=== PATIENT | female | born 1990 | race African-American/Black ===

== ENCOUNTER 2018-04-15 12:22 | Emergency (ER) | payer BC, SELFPAY ==
[2018-04-15 13:43] LABS: Hemoglobin 11.3 g/dL (12.0-16.0); Mean Corpuscular HGB CONC 30.4 g/dL (32.0-36.0); Mean Corpuscular Hemoglobin 22.8 pg (27.0-31.0); Mean Platelet Volume 8.9 fL (7.4-10.4); Platelet Count 227 thou/uL (130-400); RBC Distribution Width 13.7 % (11.5-14.5); Red Blood Cell (RBC) Count 4.94 mill/uL (4.20-5.40); White Blood Cell (WBC) Count 5.9 thou/uL (4.8-10.8)
--- NOTE | 2018-04-15 14:05 | RAD ---
AP VIEW CHEST: Date: 04/15/18 HISTORY: Chest pain. Elevated blood pressure. FINDINGS: AP view of chest obtained. Cardiomegaly noted. No evidence of effusions, pneumonia, or pneumothorax s een. IMPRESSION: Cardiomegaly. POS: JANIS
[2018-04-15 14:08] LABS: #Basophils 0.1 thou/uL (0.0-0.2); #Eosinphils 0.1 thou/uL (0.0-0.7); #Lymphocytes 2.3 thou/uL (1.20-3.40); #Monocytes 0.5 thou/uL (0.11-0.59); %Basophils 1.5 % (0.0-1.0); %Eosinophils 1.8 % (0.0-10.0); %Lymphocytes 38.6 % (21.0-51.0); %Monocytes 7.7 % (0.0-10.0); %Neutrophils 50.3 % (42.0-75.0); Hypochromia SLIGHT = 6-15 cells (100X) (0-5/hpf); MDiff Complete? YES; Microcytosis SLIGHT = 6-15 cells (100X) (0-5/hpf); PLT Morphology Comment Appears Adequate
[2018-04-15 14:09] LABS: CKMB 0.7 ng/mL (0-6.6); Troponin I Less than 0.010 ng/mL (< 0.028)
[2018-04-15 14:12] LABS: ALT (SGPT) 8 U/L (8-55); AST (SGOT) 11 U/L (5-34); Albumin 4.1 g/dL (3.5-5.0); Alkaline Phosphatase 73 U/L (40-150); Anion Gap 9 mmol/L (10-20); BUN (Urea Nitrogen) 13 mg/dL (7.0-18.7); Bilirubin, Total 0.8 mg/dL (0.2-1.2); CK (CPK) 100 U/L (29-168); Calc. Creatinine Clearance 0 mL/min (70-130); Calcium 9.4 mg/dL (7.8-10.44); Carbon Dioxide 28 mmol/L (22-29); Chloride 105 mmol/L (98-107); Estimated GFR-MDRD 81; Glucose 119 mg/dL (70-105); Lipase 60 U/L (8-78); Potassium 3.8 mmol/L (3.5-5.1); Protein, Total 7.1 g/dL (6.0-8.3); Sodium 138 mmol/L (136-145)
== END 2018-04-15 17:04 | disposition home or self-care (01) ==
LOC: ERS 12:22
DX: R07.89 Other chest pain (principal); I10 Essential (primary) hypertension; I47.1 Supraventricular tachycardia
CPT/HCPCS: 36415; 71045; 80053; 82550; 82553; 83690; 84484; 85025; 93005

== ENCOUNTER 2018-12-26 08:19 | Emergency (ER) | payer BC, MEDICAID | END 2018-12-26 08:39 | disposition home or self-care (01) | LOC: SCSER 08:19 | DX: Z34.82 Encounter for supervision of other normal pregnancy, second trimester (principal); I47.1 Supraventricular tachycardia; I49.9 Cardiac arrhythmia, unspecified; Z3A.19 19 weeks gestation of pregnancy | CPT/HCPCS: 99281 ==

== ENCOUNTER 2019-05-04 16:45 | Day surgery (SDC) | payer BC, OTHER ==
[2019-05-04 17:19] VITALS: BP 129/81; TEMP 98.3; BMI 37.3
[2019-05-04] MEDS ORDERED: hydrALAZINE 20 MG/ML VIAL SLOW IVP PRN (17:41)
[2019-05-04] MEDS ORDERED: Calcium Carbonate 500 MG ChewTAB PO SCH ×2 (18:15→21:00)
--- NOTE | 2019-05-04 20:37 | PRG ---
DATE OF SERVICE: 05/04/2019 PRIMARY OB: Chanell Guerrero MD. CHIEF COMPLAINT: Elevated blood pressures. HISTORY OF PRESENT ILLNESS: The patient is a 29-year-old, G4, P2 female with an intrauterine at 36 weeks, complicated by chronic hypertension on Procardia and hydrochlorothiazide. The patient reports that she has been checking her blood pressures multiple times daily and has noted it at home to be elevated today, on the recent days 130s up to 160s systolic and 80s up to 100s diastolic. She denies any other symptoms or any headache, right upper quadrant tenderness, shortness of breath, vision changes. She denies any labor symptoms, uterine contractions, vaginal bleeding, change in discharge. She denies urinary urgency. The patient denies any other complications with this . She is scheduled for a repeat in the next week. The patient denies any recent illness including fever or cough, headache, chest pain, shortness of breath, nausea, vomiting, diarrhea, constipation, any new rashes, hip problems, knee problems, muscle weakness, any vaginal bleeding, leakage of fluid, urinary urgency or frequency. PAST MEDICAL HISTORY: -induced hypertension, likely chronic. PAST SURGICAL HISTORY: Prior . ALLERGIES: NO KNOWN DRUG ALLERGIES. SOCIAL HISTORY: Denies drug, alcohol, or tobacco use. MEDICATIONS: 1. Hydrochlorothiazide 25 mg daily. 2. Nifedipine 30 mg twice a day. OB LABORATORY DATA: Diabetes screen is 93. HIV nonreactive. Hepatitis B surface antigen nonreactive. Syphilis screening nonreactive. Drug screen is negative. Blood type B positive antibody screen negative. REVIEW OF SYSTEMS: Per HPI. PHYSICAL EXAMINATION: VITAL SIGNS: The patient has had her blood pressure monitored about every 10 to 15 minutes for over an hour. Blood pressures have remained within the normal range 124/75 to 139/81, with all, but that one blood pressure remaining in the 120s. Heart rate in the 90s, respiratory rate 18, temperature 98.3. GENERAL: She appears to be in no acute distress. She is alert and oriented, cooperative and pleasant to interact with. HEAD: Normocephalic and atraumatic. LUNGS: Clear to auscultation bilaterally. HEART: Regular rate and rhythm. ABDOMEN: Soft and gravid. EXTREMITIES: Nontender, nonedematous. : Deferred. heart tracing performed for history of -induced hypertension, on medications. Fetus is known to be in the 130s with moderate long-term variability, positive 15 x 15 accelerations, no decelerations and a tocometer showing a little bit of irritability, but no contraction pattern. ASSESSMENT AND PLAN: The patient is a 29-year-old multiparous female with an intrauterine at 36 weeks, complicated by -induced hypertension, likely chronic in nature, on medication. The patient has had all normal range blood pressures here during her stay and is without any other symptoms. The patient is being discharged to home with instructions that should she experience any more severe ranged blood pressures at home to come if they persist and repeat and be sure to bring her blood pressure cuff. The patient has a scheduled appointment with Dr. Guerrero in the next few days, which we have encouraged that she keep and is scheduled for a repeat next Saturday. Fetus has a reactive NST and category 1 tracing. Job ID: [id number]
== END 2019-05-04 18:42 | disposition home or self-care (01) ==
LOC: L&D/OP 16:45
PROVIDERS: ATTEND Obstetrics & Gynecology
DX: O10.013 Pre-existing essential hypertension complicating pregnancy, third trimester (principal); Z3A.36 36 weeks gestation of pregnancy; Z79.899 Other long term (current) drug therapy
CPT/HCPCS: 99283